=== PATIENT | female | born 1945 | race Asian ===

== ENCOUNTER 2019-12-16 06:35 | Day surgery (SDC) | payer OTHER, SELFPAY ==
[~2019-12-16] VITALS: Ht 157.5 cm; Wt 63.5 kg
[2019-12-16] MEDS ORDERED: CEFAZOLIN SOD 1 GM in D5W 50 ML IV ONE (06:45)
[2019-12-16] MEDS ORDERED: SEVOFLURANE 15 MIN GAS INH ONE (10:00)
[2019-12-16] MEDS ORDERED: MIDAZOLAM HCL 5 MG/5 ML VIAL IVP ONE (10:00)
[2019-12-16] MEDS ORDERED: DEXAMETHASONE SOD PHOSPHATE 4 MG/ML VIAL IVP ONE (10:00)
[2019-12-16] MEDS ORDERED: fentaNYL CITRATE/PF 100 MCG/2 ML AMP IVP ONE (10:00)
[2019-12-16] MEDS ORDERED: NS IRRIG SOLN 1000 ML IR ONE (10:00)
[2019-12-16] MEDS ORDERED: BUPIVACAINE /PF 0.5% 30 ML VIAL INJ ONE (10:00)
[2019-12-16] MEDS ORDERED: LR 1,000 ML IV.SOLN IV ONE (10:00)
[2019-12-16] MEDS ORDERED: PROPOFOL 200MG/ 20ML VIAL (DIPRIVAN) IV ONE (10:00)
[2019-12-16] MEDS ORDERED: METHYLENE BLUE 1 ML AMPUL INJ ONE (10:00)
[2019-12-16] MEDS ORDERED: LR 1,000 ML IV SCH (11:40)
[2019-12-16] MEDS ORDERED: HYDROmorphone 1 MG INJ. 1 MG/ML AMPUL IVP PRN ×3 (11:45→12:00)
[2019-12-16] MEDS ORDERED: ONDANSETRON HCL 4 MG/2 ML VIAL IVP PRN (11:45)
[2019-12-16] MEDS ORDERED: METOCLOPRAMIDE HCL 10 MG/2 ML VIAL IVP PRN (11:45)
[2019-12-16] MEDS ORDERED: ePHEDrine sulfate 50 MG/ML VIAL IVP PRN (11:45)
[2019-12-16] MEDS ORDERED: NALOXONE HCL 0.4 MG/ML AMP (NARCAN) IVP PRN (11:45)
[2019-12-16] MEDS ORDERED: hydrALAZINE HCL 20 MG/ML VIAL IVP PRN (11:45)
[2019-12-16] MEDS ORDERED: HYDROcodone/ACETAMIN 5-325 MG TAB (NORCO/ VICODIN) PO PRN ×2 (12:00)
[2019-12-16] MEDS ORDERED: D5/0.45 NS 1,000 ML IV SCH (12:00)
[2019-12-16] MEDS ORDERED: HYDROmorphone 1 MG INJ. 1 MG/ML AMPUL ONE (12:53)
[2019-12-16 13:15] VITALS: BP_SYST 166
[2019-12-16] MEDS ORDERED: ONDANSETRON HCL 4 MG/2 ML VIAL ONE (13:50)
[2019-12-16] MEDS ORDERED: ONDANSETRON HCL 4 MG/2 ML VIAL IVP ONE (13:50)
== END 2019-12-16 15:00 | disposition home or self-care (01) ==
LOC: SDS 06:35 → SMU 06:35 → EDSTATUS 08:00 → SDS 15:00
PROVIDERS: ATTEND Colon & Rectal Surgery
DX: C50.911 Malignant neoplasm of unspecified site of right female breast (principal); I10 Essential (primary) hypertension; Z11.59 Encounter for screening for other viral diseases
CPT/HCPCS: 19281; 19301; 38525; 78195; 82962; 88305; 88307; A9541; J0690; J1100; J1170; J2250; J2405; J2704; J3010; J3490; J7060; J7120; Q9968; U0003; 88341; 88342